=== PATIENT | male | born 1970 | race African-American/Black ===

== ENCOUNTER 2023-12-27 21:38 | Inpatient (IN) | payer OTHER ==
[~2023-12-27] VITALS: Ht 190.5 cm; Wt 149.7 kg
[2023-12-27 21:52] VITALS: O2SAT 96
[2023-12-27] MEDS: LIDOCAINE HCL/EPINEPHRINE 1%-EPI 1:100,000 20ML VIAL INFIL ONE (22:00)
[2023-12-27] MEDS: BACITRACIN ZINC OINT UDPKT TOP ONE (22:00)
[2023-12-27 22:58] LABS: BASOPHILS % 0.6 % (0.0-2.0); EOSINOPHILS % 1.7 % (0.0-5.0); HEMATOCRIT. 30.8 % (42.0-52.0); LYMPHOCYTES % 15.6 % (20.0-50.0); MEAN CORPUSCULAR HEMOGLOBIN 30.9 pg (28.0-32.0); MEAN CORPUSCULAR HGB CONC 32.6 g/dL (31.0-37.0); MEAN CORPUSCULAR VOLUME 94.6 fL (80.0-94.0); MEAN PLATELET VOLUME 7.9 fl (7.4-10.4); MONOCYTES % 11.4 % (2.0-8.0); NEUTROPHILS % 70.7 % (40.0-76.0); PLATELET 206 x1000/uL (130-400); RED BLOOD CELL COUNT 3.25 mill/uL (4.7-6.1); WHITE BLOOD COUNT 8.1 x1000/uL (4.5-11.0)
[2023-12-27 23:03] LABS: CHLORIDE 110 mEq/L (98-107); POTASSIUM 3.1 mEq/L (3.5-5.1); SODIUM 142 mEq/L (136-145)
[2023-12-27 23:04] LABS: CARBON DIOXIDE 26 mEq/L (21-32)
[2023-12-27 23:05] LABS: CALCIUM 9.1 mg/dL (8.7-10.4)
[2023-12-27 23:09] LABS: CREATININE 1.2 mg/dL (0.6-1.3); GLUCOSE 121 mg/dL (70-105)
[2023-12-27 23:10] LABS: UREA NITROGEN BLOOD 15 mg/dL (9-23)
[2023-12-27 23:11] LABS: TROPONIN I HIGH SENSITIVITY 13 ng/L (3.0-53)
[2023-12-27] MEDS: MORPHINE SULFATE 4 MG/ML INJ (FOR IV/IM USE) IV STA (23:12)
[2023-12-27] MEDS: SODIUM CHLORIDE 0.9% 1,000 ML IV ONE (23:12)
[2023-12-27] MEDS: ONDANSETRON HCL 4MG/2ML INJ IV STA (23:12)
[2023-12-27 23:16] LABS: INR 2.1; PROTHROMBIN TIME 21.9 sec (9.6-11.0)
[2023-12-28] VITALS: BP 111/49; PULSE 70; RESP 16; TEMP 36.28068; O2SAT 96
[2023-12-28] MEDS: POTASSIUM CHLORIDE 20MEQ/PACKET PO NR (02:27)
[2023-12-28] MEDS: MORPHINE SULFATE 2 MG/ML INJ (NOT FOR IM USE) IV PRN (11:17)
[2023-12-28] MEDS ORDERED: ONDANSETRON HCL 4MG/2ML INJ IV PRN (15:45)
[2023-12-28] MEDS: HYDROCODONE/ACETAMINOPHEN 5/325MG TABLET PO PRN (17:39)
[2023-12-28] MEDS ORDERED: TOPIRAMATE 100MG TABLET PO SCH (21:00)
[2023-12-28] MEDS ORDERED: NALOXONE HCL 0.4MG/ML VIAL IV PRN (22:45)
[2023-12-29 00:24] VITALS: BP 99/61; PULSE 64; RESP 18; TEMP 36.3068
[2023-12-29] MEDS ORDERED: TOPI15CA11 MT (01:29)
[2023-12-29] MEDS ORDERED: WARF1TAB85 MT (01:29)
[2023-12-29] MEDS ORDERED: HYDR25TA PO (01:30)
[2023-12-29] MEDS ORDERED: GABA-532 PO (01:30)
[2023-12-29] MEDS ORDERED: TRAZ150T78 PO (01:31)
[2023-12-29] MEDS ORDERED: OMEP10CA5 PO (01:31)
[2023-12-29] MEDS ORDERED: MODA100T28 MT (01:32)
[2023-12-29] MEDS ORDERED: PRAZ1POW3 MC (01:33)
[2023-12-29 04:00] VITALS: BP 113/65; PULSE 61; RESP 16; TEMP 36.33624; O2SAT 97
[2023-12-29] MEDS: GABAPENTIN 300MG CAPSULE PO SCH (05:29)
[2023-12-29] MEDS: PANTOPRAZOLE 40MG DR TABLET PO SCH (06:22)
[2023-12-29 07:58] VITALS: BP 115/70; PULSE 60; RESP 18; TEMP 36.6696; O2SAT 98
[2023-12-29] MEDS: TOPIRAMATE 25MG TABLET PO SCH (08:29)
[2023-12-29] MEDS: TOPIRAMATE 100MG TABLET PO SCH (08:29)
[2023-12-29 12:00] VITALS: BP 120/74; PULSE 62; RESP 20; TEMP 36.78072; O2SAT 97
[2023-12-29 12:09] VITALS: BP 120/74; PULSE 62; RESP 20
== END 2023-12-29 12:45 | disposition left against medical advice (07) | DRG 602 ==
LOC: ER 21:38 → EDBEDREQ 22:09 → 5WST 12-28 00:21 → EDBEDREQ 12-28 00:25 → 5WST 12-28 05:02 → 8WST 12-28 22:38
PROVIDERS: ADMIT Internal Medicine; ATTEND Internal Medicine
DX: L03.116 Cellulitis of left lower limb (principal); R57.8 Other shock; L97.928 Non-pressure chronic ulcer of unspecified part of left lower leg with other specified severity; Z68.41 Body mass index [BMI] 40.0-44.9, adult; E66.01 Morbid (severe) obesity due to excess calories; Z53.29 Procedure and treatment not carried out because of patient's decision for other reasons; G40.909 Epilepsy, unspecified, not intractable, without status epilepticus; I10 Essential (primary) hypertension; I89.0 Lymphedema, not elsewhere classified; Z79.01 Long term (current) use of anticoagulants; Z86.711 Personal history of pulmonary embolism; Z86.718 Personal history of other venous thrombosis and embolism
CPT/HCPCS: 36415; 71045; 80048; 83605; 84484; 85025; 86850; 86900; 99291; J2270; J2405; J7030